=== PATIENT | female | born 1960 | race Caucasian/White ===

== ENCOUNTER 2017-05-11 15:40 | Emergency (ER) | payer OTHER ==
[2017-05-11 15:54] VITALS: BP 142/73; BMI 41.1
--- NOTE | 2017-05-11 17:14 | DR.GENAD ---
HPI - PCP Primary Care Physician: NONE - HPI Comment HPI Comment: HISTORY BELOW. - Complaint/Symptoms Chief Complaint Doctors Comments: INSECT BITE SATURDAY, SWOLLEN AND WORSE TODAY Chief Complaint:: "SOMTHING BIT ME ON THE RIGHT SIDE OF MY FACE SATURDAY AND IT HAS GOT WORSE SINCE THEN I THINK I HAVE MRSA" - Nurses notes reviewed Nurses Notes Review: Yes - Source History Provided: Patient - Mode of Arrival Mode of Arrival: Ambulatory - Timing Onset of Chief Complaint: 05/06/17 Came on: Suddenly - Duration Duration: Constant Duration: Days - Severity Severity: Moderate PMH - PMH Past Medical History: Yes Past Medical History: COPD, Hypothyroidism Past Medical History Comment: CONGESTIVE HEART FAILURE Past Surgical History: Yes Surgical History: Cholecystectomy, Hysterectomy Past Surgical History Comment: BLADDER SLING, TUBAL - Family History History of Family Medical Conditions: Yes Family Medical History: Diabetes Mellitus, Cancer, Heart Failure, Hypertension - Social History Does patient currently use any type of tobacco product: No Have you used tobacco products in the last 12 months: No Type of Tobacco Use: None Does any household member use tobacco: No Alcohol Use: None Lives With: Family Lives Where: Home - infectious screening In the last 2 months have you had wt loss of >10#?: NO Have you had fever, night sweats or hemotysis?: No Have you traveled outside the country in the last 6 months?: No Isolation: Standard ROS - Review of Systems Constitutional: No Symptoms Reported Eyes: No Symptoms Reported ENTM: Throat Pain. negative: Ear Pain, Nose Discharge, Nose Congestion Respiratoy: Non-Productive Cough. negative: Productive Cough, Short of Breath, Wheezing, Hemoptysis Cardiovascular: No Symptoms Reported Gastrointestinal/Abdominal: No Symptoms Reported Genitourinary: No Symptoms Reported Neurological: No Symptoms Reported Musculoskeletal: No Symptoms Reported Integumentary: Other (RT JAW RAW APPEARING WITH WEEPING EDEMAL THROT NO RED. SLIGHT SWELLING.) Hematologic/Lymphatic: No Symptoms Reported Endocrine: No Symptoms Reported All Other Systems: Reviewed and Negative PE - Vital Signs Vitals: Temperature 98.1 F Pulse Rate 88 Respiratory Rate 18 Blood Pressure 142/73 O2 Sat by Pulse Oximetry 99 - General Limitations: No Limitations General Appearance: Alert - Head Head Exam: Normal Inspection - Eyes Eye exam: Normal Appearance - ENT ENT Exam: Normal External Ear Exam External Ear Exam: Normal External Inspection TM/Canal Exam: Bilateral Normal Nose Exam: Normal Nose Exam Mouth Exam: Normal Inspection Throat Exam: Tonsillar Erythema. negative: Tonsillomegaly - Neck Neck Exam: Normal Inspection - Chest Chest Inspection: Symmetric Chest Wall Rise - Respiratory Respiratory Exam: Normal Lung Sounds Bilat Respiratory Exam: Bilateral Clear to Auscultation - Cardiovascular Cardiovascular Exam: Regular Rate, Normal Rhythm - Abdominal Exam Abdominal Exam: Normal Bowel Sounds - Extremities Extremities Exam: Normal Inspection - Back Back Exam: Normal Inspection - Neurologic Neurological Exam: Alert, Oriented X3 - Psychiatric Psychiatric Exam: Normal Affect, Normal Mood - Skin Skin Exam: Erythema MDM - Differential Diagnosis Differential Diagnosis: ALLERGIC REACTION, ANGIOEDEMA Course - Treatment Treatment: SEE ORDERS. IM AND PO MRDS IN ED. - Education/Counseling Education/Counseling: Patient, Education Educated On: Treatment, Diagnosis, Needs for Follow Up ROR - Labs Reviewed Laboratory Results Reviewed?: Yes Result Diagrams: 05/11/17 17:25 05/11/17 17:25 Laboratory: 05/11/17 17:57 Face Gram Stain - Final 05/11/17 17:57 Face Wound Culture - Final Staphylococcus Aureus WBC 7.2 X10^3/uL (3.6-10.0) 05/11/17 17:25 RBC 4.30 X10^6/uL (3.5-5.4) 05/11/17 17:25 Hgb 12.6 g/dL (12.0-16.0) 05/11/17 17:25 Hct 37.0 % (36.0-47.0) 05/11/17 17:25 MCV 86.0 fL (80.0-100.0) 05/11/17 17:25 MCH 29.3 pg (27.0-34.0) 05/11/17 17:25 MCHC 34.0 g/dL (33.0-35.0) 05/11/17 17:25 RDW 13.3 % (11.6-16.5) 05/11/17 17:25 Plt Count 244 X10^3/uL (150.0-450.0) 05/11/17 17:25 MPV 8.3 fL (7.4-11.0) 05/11/17 17:25 Neut % 65.8 % (42.0-75.0) 05/11/17 17:25 Lymph % 22.8 % (21.0-51.0) 05/11/17 17:25 Curry % 7.2 % (0.0-13.0) 05/11/17 17:25 Eos % 2.5 % (0.9-2.9) 05/11/17 17:25 Baso % 1.7 % (0.2-1.0) H 05/11/17 17:25 Neut # 4.7 x10^3/uL (2.2-4.8) 05/11/17 17:25 Lymph # 1.6 X10^3/uL (1.3-2.9) 05/11/17 17:25 Curry # 0.5 x10^3/uL (0.3-0.8) 05/11/17 17:25 Eos # 0.2 x10^3/uL (0.0-0.2) 05/11/17 17:25 Baso # 0.1 X10^3/uL (0.0-0.1) 05/11/17 17:25 Absolute Nucleated RBC 0.0 /100WBC 05/11/17 17:25 Sodium 140 mmol/L (136-145) 05/11/17 17:25 Corrected Sodium TNP 05/11/17 17:25 Potassium 4.5 mmol/L (3.5-5.1) 05/11/17 17:25 Chloride 105 mmol/L (98-107) 05/11/17 17:25 Carbon Dioxide 29.2 mmol/L (21-32) 05/11/17 17:25 BUN 10 mg/dL (7-18) 05/11/17 17:25 Creatinine 0.90 mg/dL (0.55-1.02) 05/11/17 17:25 Est GFR (MDRD) Af Amer > 60 (>60) 05/11/17 17:25 Est GFR (MDRD) Non-Af > 60 (>60) 05/11/17 17:25 Glucose 92 mg/dL (65-99) 05/11/17 17:25 Calcium 8.4 mg/dL (8.5-10.1) L 05/11/17 17:25 Corrected Calcium TNP 05/11/17 17:25 Total Bilirubin 0.50 mg/dL (0.2-1.0) 05/11/17 17:25 AST 23 Units/L (15-37) 05/11/17 17:25 ALT 34 Units/L (12-78) 05/11/17 17:25 Alkaline Phosphatase 95 Units/L (46-116) 05/11/17 17:25 Total Protein 7.5 g/dL (6.4-8.2) 05/11/17 17:25 Albumin 3.5 g/dL (3.4-5.0) 05/11/17 17:25 Globulin 4.0 g/dL (2.5-4.5) 05/11/17 17:25 Albumin/Globulin Ratio 0.9 Ratio (1.1-2.1) L 05/11/17 17:25 - Diagnosis Discharge Problem: Cellulitis Qualifiers: Site of cellulitis: face Qualified Code(s): L03.211 - Cellulitis of face - Discharge Plan Disposition: HOME, SELF-CARE Condition: Stable Prescriptions: Hydroxyzine Pamoate [Vistaril] 25 mg PO TID PRN #15 cap PRN Reason: Ibuprofen [Motrin Tab 800 mg] 800 mg PO Q8H PRN #20 tab PRN Reason: Pain/Inflammation Sulfamethoxazole-Trimethoprim [BACTRIM DS TAB 800/160 MG *] 1 tab PO BID #20 tab - Follow ups/Referrals Follow ups/Referrals: N[facility],None [Primary Care Provider] - 3 days - Instructions Instructions: Cellulitis Additional Instructions: RETURN TO ED IF WORSE.
[2017-05-11] MEDS ORDERED: VISTARIL PO ONE ×2 (17:16→17:41)
[2017-05-11] MEDS ORDERED: DECADRON INJ IM ONE (17:16)
[2017-05-11] MEDS ORDERED: BACTRIM DS TAB PO ONE ×2 (17:16→17:41)
[2017-05-11] MEDS ORDERED: ROCEPHIN VIAL 1 GM IM ONE (17:16)
[2017-05-11 17:37] LABS: BASOPHILS # (AUTO) 0.1 X10^3/uL (0.0-0.1); BASOPHILS % (AUTO) 1.7 % (0.2-1.0); EOSINOPHILS # (AUTO) 0.2 x10^3/uL (0.0-0.2); EOSINOPHILS % (AUTO) 2.5 % (0.9-2.9); HEMOGLOBIN 12.6 g/dL (12.0-16.0); LYMPHOCYTES # (AUTO) 1.6 X10^3/uL (1.3-2.9); LYMPHOCYTES % (AUTO) 22.8 % (21.0-51.0); MEAN CORPUSCULAR HEMOGLOBIN 29.3 pg (27.0-34.0); MEAN PLATELET VOLUME 8.3 fL (7.4-11.0); MONOCYTES # (AUTO) 0.5 x10^3/uL (0.3-0.8); MONOCYTES % (AUTO) 7.2 % (0.0-13.0); NEUTROPHILS # (AUTO) 4.7 x10^3/uL (2.2-4.8); NEUTROPHILS % (AUTO) 65.8 % (42.0-75.0); PLATELET COUNT 244 X10^3/uL (150.0-450.0); RED CELL DISTRIBUTION WIDTH 13.3 % (11.6-16.5); WHITE BLOOD COUNT 7.2 X10^3/uL (3.6-10.0)
[2017-05-11] MEDS ORDERED: DECADRON INJ ONE (17:40)
[2017-05-11] MEDS ORDERED: XYLOCAINE 1 % (PLAIN) ONE (17:41)
[2017-05-11] MEDS ORDERED: ROCEPHIN VIAL 1 GM ONE (17:41)
[2017-05-11 17:47] LABS: ALANINE AMINOTRANSFERASE 34 Units/L (12-78); ALBUMIN 3.5 g/dL (3.4-5.0); ALKALINE PHOSPHATASE 95 Units/L (46-116); ASPARTATE AMINO TRANSFERASE 23 Units/L (15-37); BLOOD UREA NITROGEN 10 mg/dL (7-18); CALCIUM 8.4 mg/dL (8.5-10.1); CARBON DIOXIDE 29.2 mmol/L (21-32); CHLORIDE 105 mmol/L (98-107); GLUCOSE 92 mg/dL (65-99); SODIUM 140 mmol/L (136-145); TOTAL PROTEIN 7.5 g/dL (6.4-8.2); eGFR BLACK RACES > 60 (>60); eGFR NON BLACK RACES > 60 (>60)
== END 2017-05-11 18:13 | disposition home or self-care (01) | DRG 607 ==
LOC: ER 15:40
DX: S00.86XA Insect bite (nonvenomous) of other part of head, initial encounter (principal); X58.XXXA Exposure to other specified factors, initial encounter; B95.61 Methicillin susceptible Staphylococcus aureus infection as the cause of diseases classified elsewhere
CPT/HCPCS: 36415; 80053; 85025; 87070; 87075; 87077; 87186; 87205; 96372; 99283; Q0177; J0696; J1100; J2001